=== PATIENT | female | born 2000 | race Asian ===

== ENCOUNTER 2021-08-02 15:33 | Emergency (ER) | payer OTHER ==
[~2021-08-02] VITALS: Ht 160 cm; Wt 95.5 kg
[2021-08-02] MEDS ORDERED: ACETAMINOPHEN 500 MG TABLET PO ONE (18:45)
[2021-08-02 19:13] VITALS: BP 128/83
== END 2021-08-02 19:17 | disposition home or self-care (01) ==
LOC: EMS 15:41
DX: I88.9 Nonspecific lymphadenitis, unspecified (principal)
CPT/HCPCS: 99283

== ENCOUNTER 2022-10-13 04:30 | Emergency (ER) | payer OTHER ==
[~2022-10-13] VITALS: Ht 160 cm; Wt 86.4 kg
[2022-10-13 04:32] VITALS: BP 138/79
[2022-10-13 08:29] LABS: COVID AG,FIA SOURCE NASAL SWAB
[2022-10-13 08:30] LABS: INFLUENZA TYPE A NEGATIVE FOR TYPE A (NEGATIVE); INFLUENZA TYPE B NEGATIVE FOR TYPE B (NEGATIVE)
[2022-10-13 08:34] LABS: APPEARANCE,URINE CLEAR (CLEAR); BILIRUBIN,URINE NEGATIVE (NEGATIVE); GLUCOSE, URINE (UA) NEGATIVE (NEGATIVE); KETONES,URINE NEGATIVE (NEGATIVE); LEUKOCYTE ESTERASE ,URINE NEGATIVE (NEGATIVE); NITRATE,URINE NEGATIVE (NEGATIVE); OCCULT BLOOD,URINE NEGATIVE (NEGATIVE); PROTEIN,URINE NEGATIVE (NEGATIVE); SPECIFIC GRAVITIY, URINE 1.012 (1.003-1.030); UROBILINOGEN,URINE <=1.0 mg/dL (<=1.0)
== END 2022-10-13 09:38 | disposition home or self-care (01) ==
LOC: EMS 04:32
DX: R51.9 Headache, unspecified (principal); F32.A Depression, unspecified; Z20.822 Contact with and (suspected) exposure to COVID-19
CPT/HCPCS: 99283; 87426; 81003; 87804; C9803

== ENCOUNTER 2025-06-20 23:29 | Emergency (ER) | payer OTHER ==
[~2025-06-20] VITALS: Ht 160 cm; Wt 104.5 kg
[2025-06-20 23:35] VITALS: TEMP 98; O2SAT 100
[2025-06-21 00:26] LABS: APPEARANCE,URINE CLEAR (CLEAR); GLUCOSE, URINE (UA) NEGATIVE (NEGATIVE); LEUKOCYTE ESTERASE ,URINE NEGATIVE (NEGATIVE); NITRATE,URINE NEGATIVE (NEGATIVE); OCCULT BLOOD,URINE NEGATIVE (NEGATIVE); SPECIFIC GRAVITIY, URINE 1.009 (1.003-1.030)
[2025-06-21 00:27] LABS: SQUAMOUS EPITHELIAL CELL,UR Rare /LPF (None Seen)
[2025-06-21 02:00] VITALS: BP 107/55; PULSE 75; RESP 16
[2025-06-21] MEDS ORDERED: METR500 PO (02:29)
== END 2025-06-21 02:35 | disposition home or self-care (01) ==
LOC: EMS 23:40
DX: N76.0 Acute vaginitis (principal); B96.89 Other specified bacterial agents as the cause of diseases classified elsewhere; F32.A Depression, unspecified; Z30.430 Encounter for insertion of intrauterine contraceptive device
CPT/HCPCS: 81001; 84703; 99283